=== PATIENT | female | born 1940 | race American Indian/Alaskan Native ===

== ENCOUNTER 2019-03-18 12:37 | Outpatient (CLI) | payer OTHER ==
[~2019-03-18 12:37] MED LIST: BISOPROLOL-HCT1 EAC2 PO; PRILOSEC2.5 MG PO; ZYRTEC10 M3 PO
== END 2019-03-18 13:00 | disposition home or self-care (01) ==
LOC: MAMO-SONO 12:37
DX: Z12.31 Encounter for screening mammogram for malignant neoplasm of breast (principal); N64.4 Mastodynia; Z87.898 Personal history of other specified conditions; Z09 Encounter for follow-up examination after completed treatment for conditions other than malignant neoplasm

== ENCOUNTER 2021-02-12 08:00 | Outpatient (CLI) | payer OTHER | END 2021-02-12 08:30 | disposition home or self-care (01) | LOC: PPH VACUNA 08:00 | DX: Z23 Encounter for immunization (principal) ==

== ENCOUNTER 2021-09-20 08:00 | Outpatient (CLI) | payer OTHER | END 2021-09-20 08:30 | disposition home or self-care (01) | LOC: PPH VACUNA 08:00 | PROVIDERS: ATTEND Emergency Medicine Pediatric Emergency Medicine | DX: Z23 Encounter for immunization (principal) ==

== ENCOUNTER 2022-03-01 12:26 | Outpatient (CLI) | payer OTHER | END 2022-03-01 12:36 | disposition home or self-care (01) | LOC: PPH VACUNA 12:26 | PROVIDERS: ATTEND Emergency Medicine Pediatric Emergency Medicine | DX: Z23 Encounter for immunization (principal) ==